=== PATIENT | male | born 1955 | race Caucasian/White ===

== ENCOUNTER → 2017-01-18 | Outpatient (REF) | payer OTHER ==
[2017-01-18 13:51] LABS: ALBUMIN 4.7 GM/DL (3.2-5.2); ALBUMIN/GLOBULIN RATIO 1.52 (1.00-1.93); ALKALINE PHOSPHATASE 84 U/L (45-117); ALT/SGPT 21 U/L (12-78); ANION GAP 9 MEQ/L (8-16); AST/SGOT 20 U/L (15-37); BILIRUBIN,TOTAL 0.6 MG/DL (0.2-1.0); BLOOD UREA NITROGEN 20 MG/DL (7-18); CALCIUM LEVEL 9.2 MG/DL (8.8-10.2); CARBON DIOXIDE LEVEL 28 MEQ/L (21-32); CHLORIDE LEVEL 103 MEQ/L (98-107); CHOLESTEROL LEVEL 175 MG/DL (<200); CREATININE FOR GFR 1.19 MG/DL (0.70-1.30); GLOMERULAR FILTRATION RATE > 60.0 (>49); GLUCOSE, FASTING 87 MG/DL (80-110); POTASSIUM SERUM 4.5 MEQ/L (3.5-5.1); SODIUM LEVEL 140 MEQ/L (136-145); TOTAL PROTEIN 7.8 GM/DL (6.4-8.2); TRIGLYCERIDES LEVEL 90 MG/DL (<150)
== END ==
LOC: M SFHCADAM 07:48
PROVIDERS: ATTEND Family Medicine
DX: E78.5 Hyperlipidemia, unspecified (principal); N52.9 Male erectile dysfunction, unspecified

== ENCOUNTER → 2017-01-28 | Outpatient (REF) | payer OTHER | LOC: M SFHCADAM 12:11 | PROVIDERS: ATTEND Physician Assistant | DX: I10 Essential (primary) hypertension (principal) ==

== ENCOUNTER → 2017-05-17 | Outpatient (CLI) | payer OTHER ==
--- NOTE | 2017-05-17 11:20 | REP ---
Clinical: Left hip pain. Technique: Single AP view of the pelvis. Findings: Pelvis is intact. Early moderate degenerative changes of the bilateral hips includes increase sclerosis and subtle spurring along the acetabular margin with joint space narrowing. Proximal femurs appear intact and normal. 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 Signed by Zachery Ogden MD 05/17/2017 11:11 A
--- NOTE | 2017-05-17 11:31 | REP ---
Clinical: Left hip pain. Technique: AP, lateral, bilateral oblique and coned-down views of the lumbosacral spine. Findings: Age-related osteopenia and advanced multilevel degenerative disc osteophyte complexes noted throughout the visualized lower thoracic and lumbosacral spine. Subtle compression deformity at L1 is likely chronic. Findings include osteophytosis, endplate sclerosis with disc space narrowing and hypertrophic facet changes. Alignment and lordosis maintained. Atherosclerotic changes to the aorta and vasculature noted. Impression: Age-related osteopenia and advanced multilevel degenerative changes. Subtle chronic compression deformity at L1 likely chronic. Signed by Zachery Ogden MD 05/17/2017 11:22 A
--- NOTE | 2017-05-17 12:25 | REP ---
Clinical: Left hip pain. Technique: Neutral and frog lateral views of the left hip. Findings: Mild arthritic degenerative changes include increased sclerosis to the acetabular roof with subtle spurring and medial joint space narrowing. No acute fracture dislocation. No periarticular calcifications. Surrounding soft tissues are normal. Impression: Mild arthritic degenerative changes. Signed by Zachery Ogden MD 05/17/2017 12:16 P
[2017-05-17 12:26] LABS: BASO % 0.4 % (0.0-1.0); EOS # 0.1 K/mm3 (0.0-0.50); EOS % 1.4 % (0.0-3.0); LARGE UNSTAINED CELL # 0.1 K/mm3 (0.0-0.4); LARGE UNSTAINED CELL % 1.3 % (0.0-4.0); LYMPH # 1.2 K/mm3 (1.5-4.5); LYMPH % 22.1 % (24.0-44.0); MEAN CORPUSCULAR HEMOGLOBIN 32.9 pg (27.0-33.0); MEAN CORPUSCULAR HGB CONC 34.1 g/dl (32.0-36.5); MEAN CORPUSCULAR VOLUME 96.5 fl (80.0-96.0); MONO # 0.3 K/mm3 (0.0-0.8); MONO % 5.8 % (0.0-5.0); NEUTROPHILS # 3.8 K/mm3 (1.8-7.7); NEUTROPHILS % 69.1 % (36.0-66.0); PLATELET COUNT, AUTOMATED 249 k/mm3 (150-450); RED CELL DISTRIBUTION WIDTH 11.9 % (11.5-14.5); WHITE BLOOD COUNT 5.5 K/mm3 (4.0-10.0)
--- NOTE | 2017-05-17 12:26 | REP ---
Clinical: Left hip pain. Technique: Neutral and frog lateral views to the left femur. Findings: Mild arthritic degenerative changes to the at the knee joint noted. No acute fracture dislocation. No periosteal reaction. Vascular calcifications are identified. Surrounding soft tissues without subcutaneous emphysema or radiodense foreign body. Impression: Mild arthritic degenerative changes to the knee and hip joint. Signed by Zachery Ogden MD 05/17/2017 12:17 P
[2017-05-17 13:20] LABS: ERYTHROCYTE SEDIMENTATION RATE 4 mm/hr (0-20)
[2017-05-19 00:15] LABS: Lyme Disease IgG/IgM Antibodie <0.91 ISR (0.00-0.90); Lyme Disease IgM Ab Quantitati <0.80 index (0.00-0.79)
== END ==
LOC: M ADAMS 10:24
PROVIDERS: ATTEND Physician Assistant
DX: M25.552 Pain in left hip (principal); M16.0 Bilateral primary osteoarthritis of hip; M51.36 Other intervertebral disc degeneration, lumbar region; M85.88 Other specified disorders of bone density and structure, other site; M17.12 Unilateral primary osteoarthritis, left knee

== ENCOUNTER → 2017-09-02 | Outpatient (CLI) | payer OTHER ==
--- NOTE | 2017-09-02 10:45 | REP ---
Low-dose lung screening CT without IV contrast: Studies performed without IV contrast images are presented at lung windowing only. Comparisons are 07/24/2016 and 2014. There is a nodule posteriorly in the apex of the right lung. Today this nodule measures 8 x 6 mm. Artery measuring this nodule using the diameters similar to the current study. This nodule measured 6 x 6 mm of 07/29/2015 and 7 x 7 mm on 07/24/2016. These small differences in size could merely be the result of slight differences in slice selection. Overall it is unchanged in appearance grossly. The lesion is best categorized as a category 2 lesion with the probability malignancy less than 1%. Continued annual low-dose screening CT is recommended. No other lung nodules or masses are identified. There are no infiltrates or effusions. There are secretions within the distal trachea extending into the right mainstem bronchus. Impression: Category 2 low-dose screening chest CT. Annual low-dose chest CT is recommended. Signed by Jonathan Le MD 09/02/2017 10:36 A
== END ==
LOC: M RAD 09:02
PROVIDERS: ATTEND Physician Assistant
DX: Z12.2 Encounter for screening for malignant neoplasm of respiratory organs (principal); Z72.0 Tobacco use; R91.1 Solitary pulmonary nodule

== ENCOUNTER → 2018-02-25 | Outpatient (CLI) | payer OTHER | LOC: M ADAMS 16:15 | DX: M25.752 Osteophyte, left hip (principal); M16.12 Unilateral primary osteoarthritis, left hip; M25.852 Other specified joint disorders, left hip; M51.36 Other intervertebral disc degeneration, lumbar region; M25.78 Osteophyte, vertebrae; M25.552 Pain in left hip; M54.5 Low back pain | CPT/HCPCS: 72100 ==

== ENCOUNTER → 2018-04-29 | Outpatient (CLI) | payer OTHER | LOC: M ADAMS 09:36 | DX: J40 Bronchitis, not specified as acute or chronic (principal) | CPT/HCPCS: 71046 ==

== ENCOUNTER → 2018-09-29 | Outpatient (CLI) | payer OTHER | LOC: M RAD 10:34 | DX: Z12.2 Encounter for screening for malignant neoplasm of respiratory organs (principal); Z87.891 Personal history of nicotine dependence; J84.9 Interstitial pulmonary disease, unspecified | CPT/HCPCS: G0297 ==

== ENCOUNTER → 2018-10-08 | Outpatient (REF) | payer OTHER ==
[2018-10-08 13:03] LABS: HEMATOCRIT 45.8 % (42.0-52.0); HEMOGLOBIN 15.2 g/dl (13.5-17.5); MEAN CORPUSCULAR HEMOGLOBIN 31.2 pg (27.0-33.0); MEAN CORPUSCULAR HGB CONC 33.2 g/dl (32.0-36.5); PLATELET COUNT, AUTOMATED 275 10^3/uL (150-450); RED BLOOD COUNT 4.87 10^6/uL (4.30-6.10); RED CELL DISTRIBUTION WIDTH 12.3 % (11.5-14.5); WHITE BLOOD COUNT 6.6 10^3/uL (4.0-10.0)
[2018-10-08 13:20] LABS: ALBUMIN 4.2 GM/DL (3.2-5.2); ALKALINE PHOSPHATASE 60 U/L (45-117); ALT/SGPT 22 U/L (12-78); ANION GAP 6 MEQ/L (8-16); AST/SGOT 22 U/L (7-37); BILIRUBIN,TOTAL 0.5 MG/DL (0.2-1.0); BLOOD UREA NITROGEN 13 MG/DL (7-18); CALCIUM LEVEL 8.8 MG/DL (8.8-10.2); CARBON DIOXIDE LEVEL 29 MEQ/L (21-32); CHLORIDE LEVEL 101 MEQ/L (98-107); CHOLESTEROL LEVEL 187 MG/DL (<200); CREATININE FOR GFR 1.03 MG/DL (0.70-1.30); GLOMERULAR FILTRATION RATE > 60.0 (>49); GLUCOSE, FASTING 88 MG/DL (70-100); HDL CHOLESTEROL 68 MG/DL (>40); LDL CHOLESTEROL 108 MG/DL (<100); NON-HDL-C 119 MG/DL; POTASSIUM SERUM 4.7 MEQ/L (3.5-5.1); SODIUM LEVEL 136 MEQ/L (136-145); TRIGLYCERIDES LEVEL 55 MG/DL (<150)
[2018-10-08 13:23] LABS: TOTAL 25(OH) VITAMIN D 44.8 NG/ML (30.0-100.0)
== END ==
LOC: M SFHCADAM 07:55
DX: F17.200 Nicotine dependence, unspecified, uncomplicated (principal); I10 Essential (primary) hypertension; E78.5 Hyperlipidemia, unspecified; E55.9 Vitamin D deficiency, unspecified

== ENCOUNTER → 2019-08-07 | Outpatient (CLI) | payer OTHER ==
--- NOTE | 2019-08-07 10:16 | REP ---
RIGHT HIP, TWO VIEWS: Two views of the right hip performed. There is no acute fracture or dislocation. There is mild joint space narrowing, subchondral sclerosis, and spurring. IMPRESSION: Mild degenerative changes. Electronically Signed by Jonathan Bolivar MD 08/07/2019 04:36 P
--- NOTE | 2019-08-07 10:16 | REP ---
LUMBOSACRAL SPINE: Five views of the lumbosacral spine are performed. There is no compression fracture. There is normal lumbar lordosis with no spondylolysis or spondylolisthesis. There are large spurs laterally at L1. Moderate diffuse spurring is seen inferior to that. There is moderate disc space narrowing with subchondral sclerosis and vacuum at L1-2. There is mild narrowing with subchondral sclerosis at L3-4 and L5-S1 disc spaces. There is diffuse sclerosis and spurring of the posterior facet joints. Posterior elements appear intact. IMPRESSION: Diffuse degenerative changes. Electronically Signed by Jonathan Bolivar MD 08/07/2019 04:36 P
== END ==
LOC: M ADAMS 08:52
PROVIDERS: ATTEND Physician Assistant Medical
DX: M51.36 Other intervertebral disc degeneration, lumbar region (principal); M51.37 Other intervertebral disc degeneration, lumbosacral region

== ENCOUNTER → 2019-10-21 | Outpatient (REF) | payer OTHER ==
[~2019-10-21] MED LIST: ALEN70TA74 PO; ECOT81TA5 PO; LOSA25TA14 PO; MELO7.5T35 PO; MULTCAP PO; PRAV40TA2 PO
[2019-10-21 12:58] LABS: HEMATOCRIT 42.1 % (42.0-52.0); MEAN CORPUSCULAR HEMOGLOBIN 32.2 pg (27.0-33.0); MEAN CORPUSCULAR HGB CONC 33.3 g/dl (32.0-36.5); MEAN CORPUSCULAR VOLUME 96.8 fl (80.0-96.0); PLATELET COUNT, AUTOMATED 257 10^3/uL (150-450); RED BLOOD COUNT 4.35 10^6/uL (4.30-6.10); WHITE BLOOD COUNT 6.6 10^3/uL (4.0-10.0)
[2019-10-21 14:13] LABS: ALBUMIN 4.3 GM/DL (3.2-5.2); ALT/SGPT 23 U/L (12-78); BILIRUBIN,TOTAL 0.4 MG/DL (0.2-1.0); BLOOD UREA NITROGEN 11 MG/DL (7-18); CALCIUM LEVEL 9.5 MG/DL (8.8-10.2); CARBON DIOXIDE LEVEL 27 MEQ/L (21-32); CHLORIDE LEVEL 101 MEQ/L (98-107); CHOLESTEROL LEVEL 199 MG/DL (<200); CHOLESTEROL RISK RATIO 2.802 (<5); CREATININE FOR GFR 1.13 MG/DL (0.70-1.30); GLOMERULAR FILTRATION RATE > 60.0 (>49); GLUCOSE, FASTING 85 MG/DL (70-100); HDL CHOLESTEROL 71 MG/DL (>40); LDL CHOLESTEROL 114 MG/DL (<100); NON-HDL-C 128 MG/DL; POTASSIUM SERUM 4.3 MEQ/L (3.5-5.1); SODIUM LEVEL 136 MEQ/L (136-145); TOTAL PROTEIN 7.3 GM/DL (6.4-8.2); TRIGLYCERIDES LEVEL 69 MG/DL (<150)
== END ==
LOC: M SFHCADAM 08:54
PROVIDERS: ATTEND Physician Assistant Medical
DX: F17.200 Nicotine dependence, unspecified, uncomplicated (principal); I10 Essential (primary) hypertension; E78.5 Hyperlipidemia, unspecified; Z87.81 Personal history of (healed) traumatic fracture

== ENCOUNTER → 2019-10-30 | Outpatient (CLI) | payer OTHER ==
--- NOTE | 2019-10-30 12:16 | REP ---
LOW DOSE LUNG SCREENING CT: Axial low dose lung screening CT performed without IV contrast and compared to a prior study of 09/29/2018. There are stable biapical pleural and parenchymal scarring. There is mild bullous change in both upper lobes medially. This is also stable. There are other mild areas of interstitial fibrotic scarring more inferiorly in both lungs. No suspicious nodular opacity is seen bilaterally. No consolidative infiltrate is seen bilaterally. The heart is normal in size. There is atherosclerotic calcification of the thoracic aorta without aneurysm. No mediastinal contour abnormality is seen. There are degenerative changes of the spine. IMPRESSION: Lung RADS category 2. Stable chronic fibrotic changes. Yearly, screening lung CT recommended. Electronically Signed by Jonathan Bolivar MD 10/30/2019 04:52 P
== END ==
LOC: M RAD 10:28
PROVIDERS: ATTEND Physician Assistant
DX: I70.0 Atherosclerosis of aorta (principal); R91.8 Other nonspecific abnormal finding of lung field; F17.200 Nicotine dependence, unspecified, uncomplicated

== ENCOUNTER 2020-05-10 12:37 | Emergency (ER) | payer OTHER ==
[~2020-05-10] VITALS: Ht 182.9 cm; Wt 70.9 kg
[2020-05-10] MEDS ORDERED: GABA-843 (12:47)
[2020-05-10] MEDS ORDERED: HYDR-3713 (12:47)
[2020-05-10] MEDS ORDERED: CYCL5TAB (12:47)
[2020-05-10] MEDS ORDERED: MELO15TA28 (12:47)
[2020-05-10 13:34] LABS: BASO % 0.6 % (0.0-1.0); EOS # 0.2 10^3/uL (0.0-0.5); EOS % 2.2 % (0.0-3.0); HEMATOCRIT 43.3 % (42.0-52.0); HEMOGLOBIN 14.5 g/dl (13.5-17.5); LYMPH # 1.2 10^3/uL (1.5-5.0); LYMPH % 17.8 % (24.0-44.0); MEAN CORPUSCULAR HEMOGLOBIN 31.3 pg (27.0-33.0); MEAN CORPUSCULAR HGB CONC 33.5 g/dl (32.0-36.5); MEAN CORPUSCULAR VOLUME 93.3 fl (80.0-96.0); MONO # 0.4 10^3/uL (0.0-0.8); MONO % 6.1 % (0.0-5.0); NEUTROPHILS # 5.1 10^3/uL (1.5-8.5); PLATELET COUNT, AUTOMATED 245 10^3/uL (150-450); RED BLOOD COUNT 4.64 10^6/uL (4.30-6.10); WHITE BLOOD COUNT 6.9 10^3/uL (4.0-10.0)
[2020-05-10 13:55] LABS: BLOOD UREA NITROGEN 13 MG/DL (7-18); CREATININE FOR GFR 1.06 MG/DL (0.70-1.30); GLUCOSE, FASTING 93 MG/DL (70-100)
[2020-05-10 13:56] LABS: ALBUMIN 4.1 GM/DL (3.2-5.2); ALT/SGPT 21 U/L (12-78); BILIRUBIN,DIRECT 0.1 MG/DL (0.0-0.2); BILIRUBIN,TOTAL 0.6 MG/DL (0.2-1.0); CALCIUM LEVEL 9.4 MG/DL (8.8-10.2); CARBON DIOXIDE LEVEL 30 MEQ/L (21-32); CHLORIDE LEVEL 99 MEQ/L (98-107); GLOMERULAR FILTRATION RATE > 60.0 (>49); POTASSIUM SERUM 3.9 MEQ/L (3.5-5.1); SODIUM LEVEL 132 MEQ/L (136-145); TOTAL PROTEIN 7.2 GM/DL (6.4-8.2)
--- NOTE | 2020-05-10 14:28 | REP ---
Clinical: Right lower extremity pain and swelling . Technique: Bolivar scale and color Doppler evaluation using linear high frequency transducer. Findings: Ultrasound examination of the right lower extremity deep venous structures from the common femoral vein to the popliteal vein demonstrates normal compressibility flow and wave patterns in response to respiration and augmentation. There is no evidence for deep venous thrombosis. Impression: No evidence for deep venous thrombosis. Electronically Signed by Zachery Ogden MD 05/10/2020 02:20 P
[2020-05-10 14:57] VITALS: BP 170/79
== END 2020-05-10 15:09 | disposition home or self-care (01) ==
LOC: M ED 12:37
DX: R22.41 Localized swelling, mass and lump, right lower limb (principal); I10 Essential (primary) hypertension; Z88.8 Allergy status to other drugs, medicaments and biological substances; F17.218 Nicotine dependence, cigarettes, with other nicotine-induced disorders

== ENCOUNTER → 2020-05-23 | Outpatient (CLI) | payer OTHER ==
[~2020-05-23] MED LIST changes: +CYCL5TAB; +GABA-843; +HYDR-3713; +MELO15TA28; +PROHANCE 279.3MG/ML 15ML VIAL As Ordered ONE
--- NOTE | 2020-05-23 16:18 | REPVR ---
PROCEDURE INFORMATION: Exam: MR Lumbar Spine Without Contrast. Exam date and time: 05/23/2020 3:02 PM Age: 64 years old Clinical indication: Lumbago with sciatica; Right; Patient HX: Low back pain RT sided sciatica; Additional info: Radicular pain of RT lower ext TECHNIQUE: Imaging protocol: Multiplanar magnetic resonance images of the lumbar spine without intravenous contrast. COMPARISON: DX SPINE LS COMPLETE 08/07/2019 9:03 AM FINDINGS: Vertebrae: Unremarkable. Spinal cord: The conus medullaris is normal. T12-L1: Chronic disc osteophytic disease at T12-L1 is associated with mild indentation of the conus tip. There is no nerve root compression. L1-L2: Chronic disc osteophytic disease is seen at L1-L2 with moderate facet arthropathy. There is mild bilateral foraminal stenosis. L2-L3: No significant disc disease. No significant spinal canal stenosis. No neural foraminal stenosis. L3-L4: The L3-L4 level demonstrates a moderate diffuse posterior disc herniation. There is severe facet arthropathy and ligament thickening. There is marked constriction of the central sac measuring about 7 x 10 mm on axial image 12 with no fluid the nerve roots. There is mild bilateral foraminal and severe subarticular stenosis. L4-L5: The L4-L5 level demonstrates a mild diffuse posterior disc herniation. There is severe facet arthropathy with moderate constriction of the central canal measuring about 8 x 15 mm with some fluid the nerve roots on axial image 8. There is moderate bilateral subarticular stenosis without significant foraminal compromise. L5-S1: There is a small T2 bright focus of the right L5-S1 annulus just to the right of midline on sagittal image 9. There is no disc herniation. There is moderate facet arthropathy. There is no nerve root compression. Soft tissues: See "L3-L4" finding. IMPRESSION: 1. Chronic disc osteophytic disease at T12-L1 is associated with mild indentation of the conus tip. There is no nerve root compression. 2. Chronic disc osteophytic disease is seen at L1-L2 with moderate facet arthropathy. There is mild bilateral foraminal stenosis. 3. The L3-L4 level demonstrates a moderate diffuse posterior disc herniation. There is severe facet arthropathy and ligament thickening. There is marked constriction of the central sac measuring about 7 x 10 mm on axial image 12 with no fluid the nerve roots. There is mild bilateral foraminal and severe subarticular stenosis. 4. The L4-L5 level demonstrates a mild diffuse posterior disc herniation. There is severe facet arthropathy with moderate constriction of the central canal measuring about 8 x 15 mm with some fluid the nerve roots on axial image 8. There is moderate bilateral subarticular stenosis without significant foraminal compromise. 5. There is a small T2 bright focus of the right L5-S1 annulus just to the right of midline on sagittal image 9. There is no disc herniation. There is moderate facet arthropathy. There is no nerve root compression. Electronically signed by: Sukhwinder Colon On 05/23/2020 16:18:07 PM
== END ==
LOC: M RAD 13:56
PROVIDERS: ATTEND Physician Assistant
DX: M25.78 Osteophyte, vertebrae (principal); M51.26 Other intervertebral disc displacement, lumbar region; M54.10 Radiculopathy, site unspecified

== ENCOUNTER → 2020-06-07 | Outpatient (CLI) | payer OTHER ==
[~2020-06-07] MED LIST changes: -PROHANCE 279.3MG/ML 15ML VIAL As Ordered ONE
--- NOTE | 2020-07-29 07:33 | REP ---
THREE PHASE BONE SCAN OF THE LUMBAR SPINE: HISTORY: Low back pain. COMPARISON: MRI study of the lumbar spine from 05/23/2020. TECHNIQUE: 21.5 mCi of technetium-99m MDP is injected and standard three phase imaging is acquired. FINDINGS: Anterior and posterior flow images are unremarkable. Blood pool images show no evidence of regional hyperemia or perfusion asymmetry. Delayed scan images in the lumbar spine show degenerative disc uptake in the L1-2 and to a lesser extent, L4-5 and L3-4 disc levels. This is mild. The L1-2 disc uptake is more on the left than on the right. No sacral or pelvic abnormal uptake is appreciated. There is a levoconvex lumbar curvature. IMPRESSION: Increased discogenic uptake most pronounced at L1-2 but mild in degree. Otherwise negative. MTDD
== END ==
LOC: M RAD 10:31
PROVIDERS: ATTEND Orthopaedic Surgery
DX: M54.5 Low back pain (principal)

== ENCOUNTER → 2020-10-20 | Outpatient (REF) | payer OTHER ==
[2020-10-20 13:13] LABS: HEMATOCRIT 42.9 % (42.0-52.0); HEMOGLOBIN 14.2 g/dl (13.5-17.5); MEAN CORPUSCULAR HEMOGLOBIN 31.6 pg (27.0-33.0); MEAN CORPUSCULAR HGB CONC 33.1 g/dl (32.0-36.5); MEAN CORPUSCULAR VOLUME 95.5 fl (80.0-96.0); PLATELET COUNT, AUTOMATED 279 10^3/uL (150-450); RED BLOOD COUNT 4.49 10^6/uL (4.30-6.10); WHITE BLOOD COUNT 5.9 10^3/uL (4.0-10.0)
[2020-10-20 13:55] LABS: ALBUMIN 4.3 GM/DL (3.2-5.2); ALT/SGPT 26 U/L (12-78); BILIRUBIN,TOTAL 0.5 MG/DL (0.2-1.0); BLOOD UREA NITROGEN 14 MG/DL (7-18); CALCIUM LEVEL 9.1 MG/DL (8.8-10.2); CARBON DIOXIDE LEVEL 30 MEQ/L (21-32); CHLORIDE LEVEL 103 MEQ/L (98-107); CHOLESTEROL LEVEL 193 MG/DL (<200); CHOLESTEROL RISK RATIO 2.797 (<5); CREATININE FOR GFR 1.03 MG/DL (0.70-1.30); GLOMERULAR FILTRATION RATE > 60.0 (>49); GLUCOSE, FASTING 88 MG/DL (70-100); HDL CHOLESTEROL 69 MG/DL (>40); LDL CHOLESTEROL 103 MG/DL (<100); NON-HDL-C 124 MG/DL; POTASSIUM SERUM 4.4 MEQ/L (3.5-5.1); SODIUM LEVEL 137 MEQ/L (136-145); TRIGLYCERIDES LEVEL 103 MG/DL (<150)
[2020-10-20 13:59] LABS: TOTAL 25(OH) VITAMIN D 36.8 NG/ML (30.0-100.0)
== END ==
LOC: M SFHCADAM 08:19
PROVIDERS: ATTEND Physician Assistant
DX: M46.1 Sacroiliitis, not elsewhere classified (principal); M51.36 Other intervertebral disc degeneration, lumbar region; I10 Essential (primary) hypertension; E78.5 Hyperlipidemia, unspecified; F17.200 Nicotine dependence, unspecified, uncomplicated

== ENCOUNTER → 2020-11-28 | Outpatient (CLI) | payer OTHER ==
[~2020-11-28] MED LIST changes: -ALEN70TA74 PO; +ALEN70TA82 PO; +GABA-282; -GABA-843
--- NOTE | 2020-11-28 08:44 | REP ---
INDICATION: LUNG NODULE SEEN ON IMAGING STUDY COMPARISON: 10/30/2019 TECHNIQUE: Axial noncontrast images from the thoracic inlet to the upper abdomen using low-dose lung screening technique (LDCT). FINDINGS: Biapical scarring along with scattered bullae/blebs and minimal scattered scarring remains stable. The lung rodrigues are essentially clear and without acute consolidation, significant nodule or mass. No pleural effusion. No pneumothorax. Tracheobronchial tree is patent. Mediastinum demonstrates atherosclerotic changes to the thoracic aorta and coronary arteries. IMPRESSION: Lung-RADS category 1. No suspicious nodule or mass. Chronic stable pleuroparenchymal changes. Management recommendations include annual low-dose CT evaluation. <Electronically signed by Zachery Ogden > 11/28/20 [id number]
== END ==
LOC: M RAD 08:04
PROVIDERS: ATTEND Physician Assistant
DX: R91.1 Solitary pulmonary nodule (principal); F17.200 Nicotine dependence, unspecified, uncomplicated

== ENCOUNTER → 2021-04-20 | Outpatient (CLI) | payer OTHER ==
[~2021-04-20] MED LIST changes: +PROHANCE 279.3MG/ML 15ML VIAL As Ordered ONE
--- NOTE | 2021-04-20 19:36 | REPVR ---
PROCEDURE INFORMATION: Exam: MR Lumbar Spine Without and With Contrast Exam date and time: 04/20/2021 6:33 PM Age: 65 years old Clinical indication: Abnormal findings; Abnormal xray or scan of thoracolumbar spine; Additional info: Lumbar spine pain, abnormal mri 05/30 TECHNIQUE: Imaging protocol: Multiplanar magnetic resonance images of the lumbar spine without and with intravenous contrast. Contrast material: PROHANCE; Contrast volume: 13 ml; Contrast route: INTRAVENOUS (IV); COMPARISON: MRI-Spine, L.S. without con 05/23/2020 2:58 PM FINDINGS: Vertebrae: Discogenic endplate changes demonstrated at L1-L2. Otherwise unremarkable. Spinal cord: Normal signal. No cord compression. L1-L2: There is a mild central spinal stenosis at L1-L2 secondary to diffuse annular bulging, thickened ligamentum flavum with mild facet joint arthropathy. L2-L3: There is a mild central spinal stenosis at L2-L3 secondary to diffuse annular bulging, thickened ligamentum flavum with mild facet joint arthropathy. L3-L4: There is a severe central spinal stenosis at L3-L4 with secondary to diffuse annular bulging, a broad right posterior and foraminal disc protrusion, thickened ligamentum flavum marked facet joint arthropathy. Moderate foraminal stenosis demonstrated on the right and mild foraminal stenosis on the left. L4-L5: There is a severe central spinal stenosis at L4-L5 secondary to diffuse annular bulging, thickened ligamentum flavum with marked facet joint arthropathy. There is moderate bilateral foraminal stenosis. L5-S1: Diffusely bulging annulus L5-S1 with a inferiorly extruded central disc protrusion extending 4 mm inferior to the superior endplate of S1. Disc no significant thecal sac compression. No significant compression of the S1 nerve roots demonstrated. Moderate bilateral foraminal stenosis. Moderate bilateral facet joint arthropathy. Soft tissues: Unremarkable. Other findings: There is no abnormal enhancement demonstrated. IMPRESSION: 1. Degenerative spondylosis with a mild central spinal stenosis at L1-L2, mild central spinal stenosis at L2-L3, severe central spinal stenosis at L3-L4 with a broad right posterior and foraminal disc protrusion, and severe central spinal stenosis at L4-L5. 2. Diffusely bulging annulus and inferiorly extruded central disc protrusion at L5-S1 as described above. Electronically signed by: Massimo Thompson On 04/20/2021 19:36:16 PM
== END ==
LOC: M RAD 17:46
PROVIDERS: ATTEND Physician Assistant
DX: M47.16 Other spondylosis with myelopathy, lumbar region (principal); M51.06 Intervertebral disc disorders with myelopathy, lumbar region
CPT/HCPCS: 72158; A9576

== ENCOUNTER → 2021-09-11 | Outpatient (CLI) | payer MEDICARE, OTHER ==
[~2021-09-11] MED LIST changes: -PROHANCE 279.3MG/ML 15ML VIAL As Ordered ONE
== END ==
LOC: M LABSMTC 08:57
PROVIDERS: ATTEND Neurological Surgery
DX: Z01.812 Encounter for preprocedural laboratory examination (principal); M48.062 Spinal stenosis, lumbar region with neurogenic claudication; Z20.822 Contact with and (suspected) exposure to COVID-19

== ENCOUNTER → 2021-11-15 | Outpatient (REF) | payer MEDICARE, OTHER ==
[~2021-11-15] MED LIST changes: +LOSA25TA13 PO; -LOSA25TA14 PO
== END ==
LOC: M LAB REF 17:32
PROVIDERS: ATTEND Physician Assistant
DX: B07.9 Viral wart, unspecified (principal)
CPT/HCPCS: 11102; 88305; G0463

== ENCOUNTER → 2022-02-20 | Outpatient (CLI) | payer MEDICARE, OTHER | LOC: M RAD 09:05 | PROVIDERS: ATTEND Physician Assistant | DX: Z12.2 Encounter for screening for malignant neoplasm of respiratory organs (principal); F17.210 Nicotine dependence, cigarettes, uncomplicated ==

== ENCOUNTER → 2022-09-03 | Outpatient (REF) | payer MEDICARE, OTHER ==
[2022-09-03 13:32] LABS: HEMATOCRIT 41.9 % (42.0-52.0); HEMOGLOBIN 13.8 g/dl (13.5-17.5); MEAN CORPUSCULAR HEMOGLOBIN 31.3 pg (27.0-33.0); MEAN CORPUSCULAR HGB CONC 32.9 g/dl (32.0-36.5); PLATELET COUNT, AUTOMATED 283 10^3/uL (150-450); RED BLOOD COUNT 4.41 10^6/uL (4.30-6.10); WHITE BLOOD COUNT 7.5 10^3/uL (4.0-10.0)
[2022-09-03 14:02] LABS: ALBUMIN 3.9 GM/DL (3.2-5.2); ALT/SGPT 29 U/L (12-78); BILIRUBIN,TOTAL 0.7 MG/DL (0.2-1.0); BLOOD UREA NITROGEN 14 MG/DL (7-18); CALCIUM LEVEL 8.8 MG/DL (8.8-10.2); CARBON DIOXIDE LEVEL 29 MEQ/L (21-32); CHLORIDE LEVEL 106 MEQ/L (98-107); CHOLESTEROL LEVEL 172 MG/DL (<200); CHOLESTEROL RISK RATIO 2.774 (<5); CREATININE FOR GFR 1.13 MG/DL (0.70-1.30); GLOMERULAR FILTRATION RATE > 60.0 (>49); GLUCOSE, FASTING 82 MG/DL (70-100); HDL CHOLESTEROL 62 MG/DL (>40); LDL CHOLESTEROL 90 MG/DL (<100); NON-HDL-C 110 MG/DL; POTASSIUM SERUM 3.8 MEQ/L (3.5-5.1); SODIUM LEVEL 139 MEQ/L (136-145); TOTAL PROTEIN 6.9 GM/DL (6.4-8.2); TRIGLYCERIDES LEVEL 102 MG/DL (<150)
== END ==
LOC: M SFHCADAM 08:16
PROVIDERS: ATTEND Physician Assistant
DX: I10 Essential (primary) hypertension (principal); E78.5 Hyperlipidemia, unspecified; M48.56XA Collapsed vertebra, not elsewhere classified, lumbar region, initial encounter for fracture; Z12.5 Encounter for screening for malignant neoplasm of prostate; F17.200 Nicotine dependence, unspecified, uncomplicated
CPT/HCPCS: 80053; 80061; 85027; G0103

== ENCOUNTER → 2023-01-10 | Outpatient (REF) | payer MEDICARE, OTHER ==
[2023-01-10 17:50] LABS: BASO # 0.1 10^3/uL (0.0-0.2); BASO % 0.8 % (0.0-1.0); EOS # 0.1 10^3/uL (0.0-0.5); EOS % 2.2 % (0.0-3.0); HEMATOCRIT 43.8 % (42.0-52.0); HEMOGLOBIN 14.2 g/dl (13.5-17.5); LYMPH # 1.5 10^3/uL (1.5-5.0); LYMPH % 23.6 % (24.0-44.0); MEAN CORPUSCULAR HEMOGLOBIN 31.1 pg (27.0-33.0); MEAN CORPUSCULAR HGB CONC 32.4 g/dl (32.0-36.5); MEAN CORPUSCULAR VOLUME 95.8 fl (80.0-96.0); MONO # 0.6 10^3/uL (0.0-0.8); MONO % 8.8 % (2.0-8.0); NEUTROPHILS # 4.1 10^3/uL (1.5-8.5); NEUTROPHILS % 64.4 % (36.0-66.0); PLATELET COUNT, AUTOMATED 311 10^3/uL (150-450); RED BLOOD COUNT 4.57 10^6/uL (4.30-6.10); WHITE BLOOD COUNT 6.3 10^3/uL (4.0-10.0)
[2023-01-10 18:17] LABS: ERYTHROCYTE SEDIMENTATION RATE 15 mm/hr (0-20)
[2023-01-10 18:19] LABS: C REACTIVE PROTEIN QUANTITATIV < 0.40 MG/DL (<1.0); FREE T3 3.1 PG/ML (2.3-4.2)
[2023-01-10 18:20] LABS: ALBUMIN 4.4 G/DL (3.2-5.2); ALKALINE PHOSPHATASE 71 U/L (46-116); ALT/SGPT 22 U/L (7.0-40); AST/SGOT 20 U/L (<34); BILIRUBIN,TOTAL 0.2 MG/DL (0.3-1.2); BLOOD UREA NITROGEN 24 MG/DL (9-23); CALCIUM LEVEL 9.5 MG/DL (8.3-10.6); CARBON DIOXIDE LEVEL 29 MMOL/L (20-31); CHLORIDE LEVEL 106 MMOL/L (98-107); CREATININE FOR GFR 1.34 MG/DL (0.70-1.30); FREE T4 1.18 NG/DL (0.89-1.76); GLOMERULAR FILTRATION RATE 56.8 (>49); GLUCOSE, FASTING 74 MG/DL (74-106); POTASSIUM SERUM 5.1 MMOL/L (3.5-5.1); SODIUM LEVEL 142 MMOL/L (136-145); THYROID STIMULATING HORMONE 1.931 uIU/ML (0.55-4.78); TOTAL PROTEIN 7.3 G/DL (5.7-8.2)
== END ==
LOC: M SFHCADAM 13:07
PROVIDERS: ATTEND Physician Assistant
DX: M54.2 Cervicalgia (principal); R59.0 Localized enlarged lymph nodes

== ENCOUNTER → 2023-01-10 | Outpatient (CLI) | payer MEDICARE, OTHER | LOC: M ADAMS 12:59 | PROVIDERS: ATTEND Physician Assistant | DX: M47.812 Spondylosis without myelopathy or radiculopathy, cervical region (principal) ==

== ENCOUNTER → 2023-03-13 | Outpatient (CLI) | payer MEDICARE, OTHER ==
[2023-03-13 16:27] LABS: BASO % 0.6 % (0.0-1.0); EOS # 0.1 10^3/uL (0.0-0.5); EOS % 1.5 % (0.0-3.0); HEMOGLOBIN 14.6 g/dl (13.5-17.5); LYMPH # 1.5 10^3/uL (1.5-5.0); LYMPH % 21.9 % (24.0-44.0); MEAN CORPUSCULAR HEMOGLOBIN 30.9 pg (27.0-33.0); MEAN CORPUSCULAR HGB CONC 33.2 g/dl (32.0-36.5); MEAN CORPUSCULAR VOLUME 93.2 fl (80.0-96.0); MONO # 0.4 10^3/uL (0.0-0.8); MONO % 6.2 % (2.0-8.0); NEUTROPHILS # 4.7 10^3/uL (1.5-8.5); NEUTROPHILS % 69.5 % (36.0-66.0); PLATELET COUNT, AUTOMATED 291 10^3/uL (150-450); RED BLOOD COUNT 4.72 10^6/uL (4.30-6.10); WHITE BLOOD COUNT 6.8 10^3/uL (4.0-10.0)
[2023-03-13 16:52] LABS: ALBUMIN 4.6 G/DL (3.2-5.2); ALKALINE PHOSPHATASE 80 U/L (46-116); ALT/SGPT 19 U/L (7.0-40); AST/SGOT 19 U/L (<34); BILIRUBIN,TOTAL 0.5 MG/DL (0.3-1.2); BLOOD UREA NITROGEN 13 MG/DL (9-23); CALCIUM LEVEL 9.8 MG/DL (8.3-10.6); CARBON DIOXIDE LEVEL 29 MMOL/L (20-31); CHLORIDE LEVEL 104 MMOL/L (98-107); CREATININE FOR GFR 1.08 MG/DL (0.70-1.30); GLOMERULAR FILTRATION RATE > 60.0 (>49); GLUCOSE, FASTING 81 MG/DL (74-106); POTASSIUM SERUM 4.4 MMOL/L (3.5-5.1); SODIUM LEVEL 137 MMOL/L (136-145); TOTAL PROTEIN 7.6 G/DL (5.7-8.2)
== END ==
LOC: M SFHCADAM 11:43 → M RAD 11:43
PROVIDERS: ATTEND Physician Assistant
DX: I12.9 Hypertensive chronic kidney disease with stage 1 through stage 4 chronic kidney disease, or unspecified chronic kidney disease (principal); N18.31 Chronic kidney disease, stage 3a

== ENCOUNTER → 2023-03-14 | Outpatient (REF) | payer MEDICARE, OTHER ==
[2023-03-14 17:00] LABS: APPEARANCE, URINE CLEAR (CLEAR); BACTERIA, URINE AUTO NEGATIVE (NEGATIVE); BILIRUBIN, URINE AUTO NEGATIVE (NEGATIVE); BLOOD, URINE BLOOD 1+ (NEGATIVE); COLOR, URINE STRAW (YELLOW); GLUCOSE, URINE (UA) AUTO NEGATIVE (NEGATIVE); KETONE, URINE AUTO NEGATIVE (NEGATIVE); LEUKOCYTE ESTERASE, URINE AUTO NEGATIVE (NEGATIVE); MUCUS, URINE SMALL (NEGATIVE); NITRITE, URINE AUTO NEGATIVE (NEGATIVE); PROTEIN, URINE AUTO NEGATIVE (NEGATIVE); RBC, URINE AUTO 1 /HPF (0-3); SPECIFIC GRAVITY URINE AUTO 1.011 (1.002-1.035); SQUAMOUS EPITHELIAL CELL UR AU 0 /HPF (0-6); UROBILINOGEN, URINE AUTO 0.2 mg/dL (0.0-2.0); WBC, URINE AUTO 0 /HPF (0-3)
[2023-03-14 17:26] LABS: CREATININE, URINE 51.2 MG/DL; MALB URINE SIEMENS < 3.0 MG/L; MAU/CREAT RATIO 5.8 MCG/MG (0.0-30.0)
== END ==
LOC: M SFHCADAM 15:52
PROVIDERS: ATTEND Physician Assistant
DX: I10 Essential (primary) hypertension (principal); N18.31 Chronic kidney disease, stage 3a

== ENCOUNTER → 2023-04-18 | Outpatient (CLI) | payer MEDICARE, OTHER | LOC: M RAD 15:53 | PROVIDERS: ATTEND Physician Assistant | DX: Z12.2 Encounter for screening for malignant neoplasm of respiratory organs (principal); F17.210 Nicotine dependence, cigarettes, uncomplicated ==

== ENCOUNTER → 2023-11-26 | Outpatient (REF) | payer MEDICARE, OTHER ==
[2023-11-26 17:42] LABS: HEMATOCRIT 40.4 % (42.0-52.0); HEMOGLOBIN 13.7 g/dl (13.5-17.5); MEAN CORPUSCULAR HEMOGLOBIN 31.9 pg (27.0-33.0); MEAN CORPUSCULAR HGB CONC 33.9 g/dl (32.0-36.5); PLATELET COUNT, AUTOMATED 310 10^3/uL (150-450); WHITE BLOOD COUNT 7.2 10^3/uL (4.0-10.0)
[2023-11-26 17:55] LABS: ALBUMIN 4.4 G/DL (3.2-5.2); BILIRUBIN,TOTAL 0.4 MG/DL (0.3-1.2); CALCIUM LEVEL 9.9 MG/DL (8.3-10.6); CHOLESTEROL RISK RATIO 3.13 (<5); CREATININE FOR GFR 1.43 MG/DL (0.70-1.30); GLOMERULAR FILTRATION RATE 52.5 (>49); HDL CHOLESTEROL 60.3 MG/DL (>40); LDL CHOLESTEROL 100.7 MG/DL (<100); NON-HDL-C 128.7 MG/DL; POTASSIUM SERUM 4.5 MMOL/L (3.5-5.1); PSA SCREENING 0.58 NG/ML (< 4.00); TOTAL PROTEIN 7.5 G/DL (5.7-8.2)
== END ==
LOC: M SFHCADAM 14:59
PROVIDERS: ATTEND Physician Assistant
DX: Z00.00 Encounter for general adult medical examination without abnormal findings (principal); E78.5 Hyperlipidemia, unspecified; I12.9 Hypertensive chronic kidney disease with stage 1 through stage 4 chronic kidney disease, or unspecified chronic kidney disease; F17.210 Nicotine dependence, cigarettes, uncomplicated; M48.56XA Collapsed vertebra, not elsewhere classified, lumbar region, initial encounter for fracture; M54.81 Occipital neuralgia; Z12.5 Encounter for screening for malignant neoplasm of prostate; N18.31 Chronic kidney disease, stage 3a
CPT/HCPCS: 80053; 80061; 85027; 99406; G0103; G0463

== ENCOUNTER 2023-12-28 04:30 | Emergency (ER) | payer MEDICARE, OTHER ==
[~2023-12-28] VITALS: Ht 180.3 cm; Wt 81.1 kg
[~2023-12-28 04:30] MED LIST changes: -GABA-282; +GABA-282 PO
[2023-12-28] MEDS ORDERED: VARE1TAB2 PO (04:38)
[2023-12-28 06:07] LABS: BASO % 0.2 % (0.0-1.0); EOS # 0.1 10^3/uL (0.0-0.5); EOS % 0.3 % (0.0-3.0); HEMATOCRIT 41.7 % (42.0-52.0); HEMOGLOBIN 14.2 g/dl (13.5-17.5); LYMPH # 1.1 10^3/uL (1.5-5.0); LYMPH % 6.7 % (24.0-44.0); MEAN CORPUSCULAR HEMOGLOBIN 31.6 pg (27.0-33.0); MEAN CORPUSCULAR HGB CONC 34.1 g/dl (32.0-36.5); MEAN CORPUSCULAR VOLUME 92.9 fl (80.0-96.0); MONO # 0.8 10^3/uL (0.0-0.8); MONO % 4.9 % (2.0-8.0); NEUTROPHILS % 87.5 % (36.0-66.0); PLATELET COUNT, AUTOMATED 282 10^3/uL (150-450); RED BLOOD COUNT 4.49 10^6/uL (4.30-6.10)
[2023-12-28 06:23] LABS: INR 0.93; PROTHROMBIN TIME 12.2 SECONDS (12.5-14.5)
[2023-12-28 06:33] LABS: CK-MB VALUE MASS 1.7 NG/ML (<3.6)
[2023-12-28 06:35] LABS: ALBUMIN 4.5 G/DL (3.2-5.2); BILIRUBIN,DIRECT 0.2 MG/DL (<0.4); BILIRUBIN,TOTAL 0.5 MG/DL (0.3-1.2); CALCIUM LEVEL 9.4 MG/DL (8.3-10.6); CREATININE FOR GFR 1.48 MG/DL (0.70-1.30); GLOMERULAR FILTRATION RATE 50.5 (>49); MB/CK RELATIVE INDEX 1.77 (< OR =4); POTASSIUM SERUM 4.2 MMOL/L (3.5-5.1); TOTAL PROTEIN 7.4 G/DL (5.7-8.2)
[2023-12-28] MEDS ORDERED: ISOVUE-370 76% 100ML VIAL As Ordered ONE (06:46)
[2023-12-28 07:28] LABS: CK-MB VALUE MASS 1.5 NG/ML (<3.6)
[2023-12-28 07:30] LABS: MB/CK RELATIVE INDEX 1.85 (< OR =4)
[2023-12-28] MEDS: NS 1,000 ML IV ONE (07:56)
[2023-12-28] MEDS ORDERED: MED REC IN PROGRESS XX SCH (09:10)
[2023-12-28] MEDS ORDERED: GUMMCHW PO (10:44)
[2023-12-28] MEDS ORDERED: BENA25CA4 PO (10:44)
[2023-12-28] MEDS ORDERED: BUPR150T12 PO (10:44)
[2023-12-28] MEDS ORDERED: VARE1TAB7 PO (10:44)
[2023-12-28] MEDS ORDERED: AMLO1TAB24 PO (10:44)
[2023-12-28] MEDS ORDERED: LOSA100T46 PO (10:44)
[2023-12-28] MEDS ORDERED: HOME MED LIST COMPLETE! XX SCH (10:55)
[2023-12-28] MEDS: ASPIRIN 325 MG TAB PO ONE (13:07)
[2023-12-28] MEDS: amLODIPine 5 MG TAB PO ONE (13:09)
[2023-12-28 14:22] LABS: CHOLESTEROL RISK RATIO 3.38 (<5); LDL CHOLESTEROL 111.8 MG/DL (<100)
[2023-12-28] MEDS ORDERED: NITROGLYCERIN 0.3MG SUBL TAB SL PRN (15:35)
[2023-12-28] MEDS: HEPARIN SOD (PORCINE) 5000UNITS/ML 1ML VIAL/SYRINGE SQ SCH (22:29)
[2023-12-28] MEDS: VARENICLINE 1MG TABLET PO SCH (22:29)
[2023-12-29 06:51] LABS: BASO % 0.5 % (0.0-1.0); EOS # 0.1 10^3/uL (0.0-0.5); EOS % 1.4 % (0.0-3.0); HEMATOCRIT 38.3 % (42.0-52.0); LYMPH # 1.4 10^3/uL (1.5-5.0); MEAN CORPUSCULAR HEMOGLOBIN 30.8 pg (27.0-33.0); MEAN CORPUSCULAR HGB CONC 33.9 g/dl (32.0-36.5); MEAN CORPUSCULAR VOLUME 90.8 fl (80.0-96.0); MONO # 0.6 10^3/uL (0.0-0.8); MONO % 7.3 % (2.0-8.0); NEUTROPHILS # 5.7 10^3/uL (1.5-8.5); NEUTROPHILS % 72.4 % (36.0-66.0); PLATELET COUNT, AUTOMATED 277 10^3/uL (150-450); RED BLOOD COUNT 4.22 10^6/uL (4.30-6.10); WHITE BLOOD COUNT 7.8 10^3/uL (4.0-10.0)
[2023-12-29 07:10] LABS: BLOOD UREA NITROGEN 19 MG/DL (9-23); CALCIUM LEVEL 8.6 MG/DL (8.3-10.6); CARBON DIOXIDE LEVEL 26 MMOL/L (20-31); CHLORIDE LEVEL 104 MMOL/L (98-107); CREATININE FOR GFR 1.15 MG/DL (0.70-1.30); GLOMERULAR FILTRATION RATE > 60.0 (>49); GLUCOSE, FASTING 90 MG/DL (74-106); POTASSIUM SERUM 4.1 MMOL/L (3.5-5.1); SODIUM LEVEL 136 MMOL/L (136-145)
[2023-12-29] MEDS: buPROPion **XL** TABLET 150MG (WELLBUTRIN XL) PO SCH (08:52)
[2023-12-29] MEDS: ASPIRIN 81MG ENTERIC TABLET PO SCH (08:53)
[2023-12-29] MEDS: PRAVASTATIN 20 MG TAB PO SCH (08:53)
[2023-12-29] MEDS: GABAPENTIN 300 MG CAP PO SCH (08:53)
[2023-12-29] MEDS: METOPROLOL SUCC *XL* 25MG TAB (TopROL *XL*) PO SCH (08:53)
[2023-12-29] MEDS: diphenhydrAMINE 25MG CAP PO SCH (08:53)
[2023-12-29 22:34] VITALS: BP 158/96
[2023-12-29] MEDS: amLODIPine 5 MG TAB PO SCH (22:34)
[2023-12-29] MEDS ORDERED: NITROGLYCERIN 0.4MG SUBL TABLET SL PRN (23:20)
[2023-12-30 09:01] VITALS: BP 148/86; TEMP 97.7; O2SAT 96
== END 2023-12-30 09:05 | disposition short-term general hospital (02) ==
LOC: M ED 04:30
DX: I20.0 Unstable angina (principal); R55 Syncope and collapse; D72.829 Elevated white blood cell count, unspecified; I45.10 Unspecified right bundle-branch block; I44.4 Left anterior fascicular block; N18.9 Chronic kidney disease, unspecified; Z79.810 Long term (current) use of selective estrogen receptor modulators (SERMs); Z79.811 Long term (current) use of aromatase inhibitors; Z79.899 Other long term (current) drug therapy; Z87.891 Personal history of nicotine dependence
CPT/HCPCS: 36415; 70450; 71045; 71275; 74177; 80048; 80061; 80076; 81001; 82550; 82553; 83605; 83690; 84484; 85025; 85610; 85730; 87040; 87486; 87581; 87633; 87798; 93005; 93041; 93306; 99285; Q9967

== ENCOUNTER → 2024-08-26 | Outpatient (REF) | payer MEDICARE, OTHER ==
[~2024-08-26] MED LIST changes: +AMLO1TAB24 PO; +BENA25CA4 PO; +BUPR150T12 PO; +GABA-1172 PO; -GABA-282 PO; +GUMMCHW PO; +LOSA100T46 PO; +VARE1TAB2 PO; +VARE1TAB7 PO
[2024-08-26 15:03] LABS: HEMATOCRIT 40.5 % (42.0-52.0); HEMOGLOBIN 13.1 g/dl (13.5-17.5); MEAN CORPUSCULAR HEMOGLOBIN 30.5 pg (27.0-33.0); MEAN CORPUSCULAR HGB CONC 32.3 g/dl (32.0-36.5); MEAN CORPUSCULAR VOLUME 94.2 fl (80.0-96.0); PLATELET COUNT, AUTOMATED 249 10^3/uL (150-450); WHITE BLOOD COUNT 5.8 10^3/uL (4.0-10.0)
[2024-08-26 15:04] LABS: CALCIUM LEVEL 9.8 MG/DL (8.3-10.6); CREATININE FOR GFR 1.55 MG/DL (0.70-1.30); GLOMERULAR FILTRATION RATE 47.7 (>49); POTASSIUM SERUM 4.8 MMOL/L (3.5-5.1)
== END ==
LOC: M SFHCADAM 08:15
PROVIDERS: ATTEND Physician Assistant
DX: N18.31 Chronic kidney disease, stage 3a (principal); Z79.899 Other long term (current) drug therapy

== ENCOUNTER 2024-09-14 11:48 | Day surgery (SDC) | payer MEDICARE, OTHER ==
[~2024-09-14] VITALS: Ht 182.9 cm; Wt 75.3 kg
[~2024-09-14 11:48] MED LIST changes: +NS 250 ML IV ONE
[2024-09-14] MEDS ORDERED: propofoL 200 MG/20 ML VIAL As Ordered ONE (13:49)
[2024-09-14 14:05] VITALS: TEMP 98.4
[2024-09-14 14:27] VITALS: BP 126/72; O2SAT 98
== END 2024-09-14 14:35 | disposition home or self-care (01) ==
LOC: M OPP 11:48
PROVIDERS: ATTEND Internal Medicine Gastroenterology
DX: Z12.11 Encounter for screening for malignant neoplasm of colon (principal); D12.6 Benign neoplasm of colon, unspecified; K57.30 Diverticulosis of large intestine without perforation or abscess without bleeding; K64.0 First degree hemorrhoids; K62.89 Other specified diseases of anus and rectum; K62.6 Ulcer of anus and rectum; I10 Essential (primary) hypertension; J44.9 Chronic obstructive pulmonary disease, unspecified; E78.00 Pure hypercholesterolemia, unspecified; Z79.899 Other long term (current) drug therapy; F17.210 Nicotine dependence, cigarettes, uncomplicated; Z85.828 Personal history of other malignant neoplasm of skin; M81.0 Age-related osteoporosis without current pathological fracture

== ENCOUNTER → 2024-12-03 | Outpatient (REF) | payer MEDICARE, OTHER ==
[~2024-12-03] MED LIST changes: -CYCL5TAB; +CYCL5TAB4; -NS 250 ML IV ONE
[2024-12-03 14:42] LABS: BASO % 0.5 % (0.0-1.0); EOS # 0.2 10^3/uL (0.0-0.5); EOS % 2.5 % (0.0-3.0); HEMATOCRIT 43.6 % (42.0-52.0); HEMOGLOBIN 14.4 g/dl (13.5-17.5); LYMPH # 1.5 10^3/uL (1.5-5.0); LYMPH % 19.6 % (24.0-44.0); MEAN CORPUSCULAR HEMOGLOBIN 31.5 pg (27.0-33.0); MEAN CORPUSCULAR VOLUME 95.4 fl (80.0-96.0); MONO # 0.6 10^3/uL (0.0-0.8); MONO % 7.5 % (2.0-8.0); NEUTROPHILS # 5.2 10^3/uL (1.5-8.5); NEUTROPHILS % 69.6 % (36.0-66.0); PLATELET COUNT, AUTOMATED 307 10^3/uL (150-450); RED BLOOD COUNT 4.57 10^6/uL (4.30-6.10); WHITE BLOOD COUNT 7.5 10^3/uL (4.0-10.0)
[2024-12-03 14:46] LABS: ALBUMIN 4.4 G/DL (3.2-5.2); BILIRUBIN,TOTAL 0.6 MG/DL (0.3-1.2); CHOLESTEROL RISK RATIO 3.17 (<5); CREATININE FOR GFR 1.46 MG/DL (0.70-1.30); GLOMERULAR FILTRATION RATE 51.1 (>49); HDL CHOLESTEROL 62.4 MG/DL (>40); LDL CHOLESTEROL 107.6 MG/DL (<100); NON-HDL-C 135.6 MG/DL; POTASSIUM SERUM 4.6 MMOL/L (3.5-5.1); PSA SCREENING 0.77 NG/ML (< 4.00); TOTAL PROTEIN 7.6 G/DL (5.7-8.2)
[2024-12-03 14:51] LABS: THYROID STIMULATING HORMONE 0.992 uIU/ML (0.55-4.78)
[2024-12-03 14:55] LABS: FREE T4 1.34 NG/DL (0.89-1.76)
[2024-12-03 16:00] LABS: HEMOGLOBIN A1c 5.3 % (4.0-6.0)
== END ==
LOC: M SFHCADAM 09:16
PROVIDERS: ATTEND Physician Assistant
DX: M81.0 Age-related osteoporosis without current pathological fracture (principal); Z71.6 Tobacco abuse counseling; Z23 Encounter for immunization; F17.210 Nicotine dependence, cigarettes, uncomplicated; N18.31 Chronic kidney disease, stage 3a; E78.5 Hyperlipidemia, unspecified; Z12.5 Encounter for screening for malignant neoplasm of prostate; Z79.899 Other long term (current) drug therapy
CPT/HCPCS: 80053; 80061; 83036; 84439; 84443; 85025; G0103

== ENCOUNTER → 2025-01-06 | Outpatient (CLI) | payer MEDICARE, OTHER | LOC: M RAD 07:43 | PROVIDERS: ATTEND Physician Assistant | DX: R91.1 Solitary pulmonary nodule (principal); F17.210 Nicotine dependence, cigarettes, uncomplicated; J43.9 Emphysema, unspecified; J98.4 Other disorders of lung; I25.10 Atherosclerotic heart disease of native coronary artery without angina pectoris ==

== ENCOUNTER → 2025-01-15 | Outpatient (CLI) | payer MEDICARE | LOC: M RAD 07:18 | PROVIDERS: ATTEND Physician Assistant | DX: N18.31 Chronic kidney disease, stage 3a (principal); R10.12 Left upper quadrant pain ==

== ENCOUNTER → 2025-05-18 | Outpatient (CLI) | payer MEDICARE, OTHER ==
[~2025-05-18] MED LIST changes: -PRAV40TA2 PO; +PRAV40TA85 PO
[2025-05-18 13:12] LABS: CALCIUM LEVEL 9.6 MG/DL (8.3-10.6); CARBON DIOXIDE LEVEL 28.0 MMOL/L (20-31); CHLORIDE LEVEL 106.0 MMOL/L (98-107); CREATININE FOR GFR 1.7 MG/DL (0.70-1.30); GLOMERULAR FILTRATION RATE 43.4 (>49); POTASSIUM SERUM 4.5 MMOL/L (3.5-5.1); SODIUM LEVEL 142.0 MMOL/L (136-145)
== END ==
LOC: M LAB 12:00
PROVIDERS: ATTEND Physician Assistant
DX: N17.9 Acute kidney failure, unspecified (principal)

== ENCOUNTER 2025-06-12 11:23 | Emergency (ER) | payer MEDICARE, OTHER ==
[~2025-06-12] VITALS: Ht 182.9 cm; Wt 76.6 kg
[2025-06-12] MEDS ORDERED: ASPI81TA26 (11:40)
[2025-06-12] MEDS ORDERED: ALBU8.5H (11:40)
[2025-06-12] MEDS ORDERED: INCR1INH (11:40)
[2025-06-12] MEDS ORDERED: ROSU40TA81 (11:40)
[2025-06-12] MEDS ORDERED: HYDR-3713 PO (14:18)
[2025-06-12] MEDS ORDERED: MIRA3350 PO (14:18)
[2025-06-12 14:29] VITALS: BP 176/94; TEMP 96; O2SAT 99
== END 2025-06-12 14:31 | disposition home or self-care (01) ==
LOC: M ED 11:23
DX: S46.091A Other injury of muscle(s) and tendon(s) of the rotator cuff of right shoulder, initial encounter (principal); X50.0XXA Overexertion from strenuous movement or load, initial encounter; M19.011 Primary osteoarthritis, right shoulder; J44.9 Chronic obstructive pulmonary disease, unspecified; F17.200 Nicotine dependence, unspecified, uncomplicated; Y92.009 Unspecified place in unspecified non-institutional (private) residence as the place of occurrence of the external cause; Y93.89 Activity, other specified; Y99.9 Unspecified external cause status; Z79.52 Long term (current) use of systemic steroids; Z79.1 Long term (current) use of non-steroidal anti-inflammatories (NSAID); Z79.899 Other long term (current) drug therapy; Z79.82 Long term (current) use of aspirin

== ENCOUNTER → 2025-06-21 | Outpatient (REF) | payer MEDICARE, OTHER ==
[~2025-06-21] MED LIST changes: +ALBU8.5H; +ASPI81TA26; +HYDR-3713 PO; +INCR1INH; +MIRA3350 PO; +ROSU40TA81
[2025-06-21 17:22] LABS: ALT/SGPT 42.0 U/L (7.0-40); AST/SGOT 28.0 U/L (<34); CALCIUM LEVEL 9.4 MG/DL (8.3-10.6); CARBON DIOXIDE LEVEL 25.0 MMOL/L (20-31); CHLORIDE LEVEL 107.0 MMOL/L (98-107); CREATININE FOR GFR 1.91 MG/DL (0.70-1.30); GLOMERULAR FILTRATION RATE 37.7 (>49); POTASSIUM SERUM 4.9 MMOL/L (3.5-5.1); SODIUM LEVEL 142.0 MMOL/L (136-145)
[2025-06-21 17:23] LABS: BASO # 0.0 10^3/uL (0.0-0.2); BASO % 0.4 % (0.0-1.0); EOS # 0.1 10^3/uL (0.0-0.5); EOS % 1.2 % (0.0-3.0); LYMPH # 1.2 10^3/uL (1.5-5.0); LYMPH % 14.9 % (24.0-44.0); MONO # 0.6 10^3/uL (0.0-0.8); MONO % 7.0 % (2.0-8.0); NEUTROPHILS # 6.4 10^3/uL (1.5-8.5); NEUTROPHILS % 76.3 % (36.0-66.0); PLATELET COUNT, AUTOMATED 260 10^3/uL (150-450)
== END ==
LOC: M SFHCADAM 14:14
PROVIDERS: ATTEND Physician Assistant
DX: I73.9 Peripheral vascular disease, unspecified (principal); N18.32 Chronic kidney disease, stage 3b; R06.09 Other forms of dyspnea; J44.9 Chronic obstructive pulmonary disease, unspecified

== ENCOUNTER → 2025-08-17 | Outpatient (REF) | payer MEDICARE, OTHER | LOC: M LAB REF 17:44 | PROVIDERS: ATTEND Internal Medicine Nephrology | DX: N17.9 Acute kidney failure, unspecified (principal) ==

== ENCOUNTER → 2025-09-09 | Outpatient (CLI) | payer MEDICARE, OTHER | LOC: M RAD 08:51 | PROVIDERS: ATTEND Internal Medicine Nephrology | DX: I12.9 Hypertensive chronic kidney disease with stage 1 through stage 4 chronic kidney disease, or unspecified chronic kidney disease (principal); N18.31 Chronic kidney disease, stage 3a; N17.9 Acute kidney failure, unspecified ==

== ENCOUNTER → 2025-09-29 | Outpatient (CLI) | payer MEDICARE, OTHER | LOC: M WHC 09:05 | PROVIDERS: ATTEND Physician Assistant | DX: M81.0 Age-related osteoporosis without current pathological fracture (principal) ==